=== PATIENT | male | born 1960 | race Two or more races ===

== ENCOUNTER 2024-06-16 20:46 | Emergency (ER) | payer MEDICAID, OTHER ==
[~2024-06-16] VITALS: Ht 165.1 cm; Wt 102.9 kg
--- NOTE | 2024-06-16 22:22 | DVH ---
CT OF THE CERVICAL SPINE WITHOUT CONTRAST HISTORY: [facility] COMPARISON: None TECHNIQUE: Helical images through the cervical spine were obtained without contrast. Sagittal and cor onal reformats were obtained. One or more of the following radiation dose reduction techniques were u sed for this examination: automated exposure control, adjustment of the mA and/or kV according to pat ient size, use of iterative reconstruction technique. FINDINGS: No grossly displaced fractures or subluxations identified. Vertebral body heights appear maintained. The bony spinal canal is grossly patent. Varying degrees of multilevel disc space narrowing and pradeep inal osteophyte formation. Lucent lesion involving the right occipital calvarium may be sequelae of arachnoid granulations. IMPRESSION: No displaced fractures or subluxations identified. Degenerative changes.
[2024-06-16] MEDS: HYDROcodone-ACET 5/325MG TAB PO ONE (22:27)
[2024-06-16] MEDS: KETOROLAC TROMETH 60MG/2ML VIAL IM ONE (22:29)
[2024-06-16] MEDS ORDERED: METH4PAK PO (22:38)
[2024-06-16] MEDS ORDERED: METH-1182 PO (22:38)
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
[2024-06-16 22:48] VITALS: BP 148/102; PULSE 108; RESP 18; TEMP 99.3; O2SAT 94
== END 2024-06-16 23:11 | disposition home or self-care (01) ==
LOC: ER 20:46
DX: S13.4XXA Sprain of ligaments of cervical spine, initial encounter (principal); Z79.899 Other long term (current) drug therapy; V89.2XXA Person injured in unspecified motor-vehicle accident, traffic, initial encounter; Y93.89 Activity, other specified; Y92.89 Other specified places as the place of occurrence of the external cause; Y99.8 Other external cause status
CPT/HCPCS: 72125; 96372; 99285; J1885